=== PATIENT | female | born 2000 | race Caucasian/White ===

== ENCOUNTER 2023-02-23 19:02 | Inpatient (IN) | payer OTHER, SELFPAY ==
[2023-02-23] VITALS (13 sets, daily range): BP systolic 109–130; BP diastolic 58–81; PULSE 82–134; TEMP 36.4–36.9; O2SAT 97–98; BMI 34.2
[2023-02-23] MEDS: Lactated Ringers 1,000 ML 50 ML IV (19:40)
[2023-02-23 19:50] LABS: Absolute Lymphocyte Count 2.28 X10^3/uL (0.83-4.51); Absolute Neutrophil Count 7.5 X10^3/uL (2.0-7.7); Basophil# 0.02 X10^3/uL; Basophil% 0.2 % (0-1); Eosinophil# 0.15 X10^3/uL; Eosinophils% 1.4 % (0-5); Hematocrit 35.4 % (37-47); Hemoglobin 12.3 g/dL (12.0-15.0); Lymphocyte # 2.28 X10^3/ul (0.83-4.51); Lymphocyte % 20.7 % (19-41); Mean Corp Hgb Conc 34.7 g/dL (32-36); Mean Corpuscular Hgb 30.1 pg (27.0-32.0); Mean Corpuscular Volume 86.6 fL (81-99); Mean Platelet Vol. 10.3 fl (6.2-12.0); Monocyte# 1.01 X10^3/uL; Monocyte% 9.2 % (0-10); NRBC Flagged by Analyzer 0 % (0-5); Neutrophil % 68.1 % (47-70); Platelet Count 300 K/mm3 (150-450); RBC Distribution Width CV 13.3 % (11.6-14.6); RBC Distribution Width SD 41.1 fl (35.1-43.9); Red Blood Count 4.09 M/mm3 (4.2-5.4)
[2023-02-23 20:32] LABS: Syphilis Antibodies Non-reactive
[2023-02-23] MEDS: miSOPROStol 25 MCG TABLET PO (20:50)
[2023-02-24] VITALS (38 sets, daily range): BP systolic 113–136; BP diastolic 65–91; PULSE 73–125; TEMP 36.5–37.1; O2SAT 91–100
[2023-02-24] MEDS: LACTATED RINGERS 500 ML 999 ML IV ×2 (00:36→22:15)
[2023-02-24] MEDS: miSOPROStol 25 MCG TABLET PO ×4 (01:55→14:05)
[2023-02-24] MEDS: 0.9% Normal Saline Single 100 ML IV.SOLN. INTRA-UTER (09:50)
--- NOTE | 2023-02-24 12:15 | PCM.HP.OB ---
HPI - General General Date of Admission: 02/23/23 HPI Narrative RICKY SUMNER, is a 22 F at 41 weeks gestation who presents for scheduled induction of labor for postdates. Maternal Data Information LEWIS Calculator Estimated Delivery Date Method Current WG Current Estimate 02/17/23 Manual 41w 0d PFSH PFS Medical History (Updated 02/24/23 @ 12:20 by Ashley Ellis CNM) Anxiety of partner Depression Home Medications famotidine 20 mg tablet (Pepcid) 20 mg PO BID 02/23/23 [History Last Taken 02/23/23 06:00] mhuqtecq-vgr-Vj-FA 1 mg tablet 1 tab PO DAILY 02/23/23 [History Last Taken 02/22/23 10:00] Allergy/AdvReac Type Severity Reaction Status Date / Time No Known Allergies Allergy Verified 02/23/23 19:24 Social History Smoking Status: Never smoker History Elective abortions Hx Para 0 Spontaneous abortions Hx # Term Pregnancies Ectopic pregnancies Hx # Pregnancies Multiple births # of living children ROS Eyes Eyes: Denies blurry vision, change in vision or spots in vision ENT HEENT: Denies dizziness or headache(s) Cardiovascular Cardiovascular: Denies abdominal pain, chest pain or dyspnea Respiratory/Chest Respiratory/Chest: Denies cough, dyspnea, shortness of breath at rest or shortness of breath with exertion Gastrointestinal Gastrointestinal: Denies abdominal pain, diarrhea or vomiting Genitourinary Genitourinary: Denies change in urinary stream, difficulty urinating or dysuria Musculoskeletal Musculoskeletal: Reports none Integumentary Integumentary: Denies rash Neurologic Neurologic: Denies dizziness, headache(s), memory loss or weakness Psychiatric Psychiatric: Reports none Vital Signs Vital Signs Vital Signs: 02/23/23 19:20 02/23/23 19:20 02/23/23 19:21 Temperature Temperature Source Pulse Rate 127 H 134 H Blood Pressure 130/81 H BP Systolic 130 BP Diastolic 81 Pulse Ox 02/23/23 19:21 02/23/23 19:26 02/23/23 19:26 Temperature Temperature Source Pulse Rate 101 H Blood Pressure BP Systolic BP Diastolic Pulse Ox 98 97 02/23/23 19:31 02/23/23 19:31 02/23/23 19:36 Temperature Temperature Source Pulse Rate 115 H 109 H Blood Pressure BP Systolic BP Diastolic Pulse Ox 98 02/23/23 19:36 02/23/23 19:41 02/23/23 19:41 Temperature Temperature Source Pulse Rate 111 H Blood Pressure BP Systolic BP Diastolic Pulse Ox 97 98 02/23/23 19:46 02/23/23 19:46 02/23/23 19:51 Temperature Temperature Source Pulse Rate 121 H 108 H Blood Pressure BP Systolic BP Diastolic Pulse Ox 97 02/23/23 19:51 02/23/23 20:29 02/23/23 20:29 Temperature Temperature Source Pulse Rate 116 H Blood Pressure 122/78 H BP Systolic 122 BP Diastolic 78 Pulse Ox 97 02/23/23 20:29 02/23/23 20:29 02/23/23 21:48 Temperature 98.5 F Temperature Source Temporal Pulse Rate Blood Pressure 118/74 BP Systolic 118 BP Diastolic 74 Pulse Ox 02/23/23 21:48 02/23/23 21:48 02/23/23 21:48 Temperature 97.6 F L Temperature Source Temporal Pulse Rate 102 H Blood Pressure BP Systolic BP Diastolic Pulse Ox 02/23/23 22:44 02/23/23 22:44 02/23/23 23:33 Temperature Temperature Source Pulse Rate 82 Blood Pressure 121/59 H 109/58 L BP Systolic 121 109 BP Diastolic 59 58 Pulse Ox 02/23/23 23:33 02/23/23 23:32 02/23/23 23:32 Temperature 98.0 F Temperature Source Temporal Pulse Rate 83 Blood Pressure BP Systolic BP Diastolic Pulse Ox 02/24/23 00:38 02/24/23 00:38 02/24/23 03:30 Temperature Temperature Source Pulse Rate 73 Blood Pressure 118/65 BP Systolic 118 BP Diastolic 65 Pulse Ox 99 02/24/23 03:30 02/24/23 03:29 02/24/23 03:29 Temperature 97.8 F Temperature Source Pulse Rate 79 Blood Pressure BP Systolic BP Diastolic Pulse Ox 99 02/24/23 07:26 02/24/23 07:26 02/24/23 07:26 Temperature Temperature Source Pulse Rate 105 H Blood Pressure 123/76 H BP Systolic 123 BP Diastolic 76 Pulse Ox 99 02/24/23 07:26 02/24/23 07:26 02/24/23 07:44 Temperature 97.7 F L Temperature Source Temporal Pulse Rate Blood Pressure 131/73 H BP Systolic 131 BP Diastolic 73 Pulse Ox 02/24/23 07:44 02/24/23 07:44 02/24/23 07:44 Temperature Temperature Source Pulse Rate 87 113 H Blood Pressure BP Systolic BP Diastolic Pulse Ox 98 02/24/23 10:08 02/24/23 10:08 02/24/23 10:08 Temperature Temperature Source Temporal Pulse Rate 82 Blood Pressure 126/85 H BP Systolic 126 BP Diastolic 85 Pulse Ox 02/24/23 10:08 02/24/23 10:08 Temperature 97.7 F L Temperature Source Pulse Rate Blood Pressure BP Systolic BP Diastolic Pulse Ox 97 Weight Weight: 232 lb 4 oz Body Mass Index (BMI) 34.2 Physical Exam Const alert and no apparent distress General Appearance: cooperative Orientation / Consciousness: awake Exam Limitations: no limitations HEENT normocephalic Eyes General Eye: normal appearance of both eyes Neck full ROM Chest inspection of chest normal Resp normal respiratory effort and normal air movement Effort and Inspection: symmetric chest movement Auscultation: clear to auscultation bilaterally Cardio regular rate GI soft to palpation, non-tender and non-distended Inspection: and other Back/Spine normal ROM Extremity full ROM, normal capillary refill and no calf tenderness Skin no rashes or lesions noted Neuro oriented x3 and CN's II-XII intact bilaterally Psych mental status grossly normal Labs Labs Labs: Blood Type O POSITIVE Antibody Screen NEGATIVE Hct 35.4 % (37-47) L Hgb 12.3 g/dL (12.0-15.0) Syphilis Total Ab Non-reactive GBS negative Assessment & Plan (1) 41 weeks gestation of : (2) Nulliparity: (3) Depression: (4) Anxiety: (5) Encounter for induction of labor: (6) of partner: COMMENT: FOB unexpectedly during PLAN: Plan Admit to labor and delivery Routine labs GBS negative Start IV fluids and run per orders CE- FT/Thick/High Cytotec 25 mcg PO every 4 hours x 6 doses total Anticipate placement of wade bulb Dr. Macias notified of admission and is collaborating physicain
--- NOTE | 2023-02-24 12:30 | PCM.PN.BLA ---
Progress Note Patient seen at bedside. Denies any pain. Has been ambulating in hallways. Assessment & Plan Assessment/Plan (1) 41 weeks gestation of : (2) Nulliparity: (3) Encounter for induction of labor: PLAN: Plan CE- FT/Thick/High- no change Cytotec 25 mcg - vaginally x 2 doses then Cytotec 50 mcg Buccal x 1 for last dose Will attempt placement of wade bulb 4 hours after last dose Cat. 1 tracing Starting to feel mild contractions Dr. Macias updated and agrees with plan of care
[2023-02-24] MEDS: Lactated Ringers 1,000 ML 50 ML IV (15:04)
[2023-02-24] MEDS: miSOPROStol 50 MCG TABLET PO (18:00)
--- NOTE | 2023-02-24 19:17 | PCM.PN.BLA ---
Progress Note At bedside with pt and RN. Pt getting uncomfortable with ctx's q 1-2 min. Assessment & Plan Assessment/Plan (1) 41 weeks gestation of : PLAN: Pt getting uncomfortable with ctx's after 50 mcg of Cytotec. At bedside to check pt and attempt intracervical wade placement. Pt declines exam and attempt at wade placement at this time given pain. TAUS performed to confirm vtx presentation and FHT 145 bpm. FHT 145/mod hugo/no accels/no decels while in room. RN palpating strong ctx's. 4 hrs after Cytotec will start pitocin per protocol. (2) Nulliparity: (3) Encounter for induction of labor:
[2023-02-24] MEDS: fentaNYL 100 MCG/2 ML Ampul IV (20:22)
[2023-02-24] MEDS: fentaNYL-bupivacaine (epidural) 100 ML BAG EPIDURAL (23:06)
[2023-02-24] MEDS: Oxytocin 15 Units/NS 250ml 15 UNITS/250 ML IV.SOLN 2 UNITS IV (23:34)
[2023-02-25] VITALS (23 sets, daily range): BP systolic 105–129; BP diastolic 42–95; PULSE 70–109; RESP 16; TEMP 36.2–36.9; O2SAT 87–100
[2023-02-25] MEDS: LACTATED RINGERS 500 ML 999 ML IV (01:20)
[2023-02-25] MEDS: Acetaminophen 500 MG Tablet PO (02:52)
[2023-02-25] MEDS: Sodium Citrate/Citric Acid 30 ML UDC PO (02:52)
[2023-02-25] MEDS: Cefazolin 2 GM in 0.9% Normal Saline 100 ML IV (03:00)
--- NOTE | 2023-02-25 03:57 | PCM.OPRPT ---
Problems Associated Problem List Diagnoses (1) Delivery by section: (2) intolerance to labor, delivered, current hospitalization: Report of Operation Date of Procedure: 02/25/23 Pre-Operative Diagnosis: 41 week gestation, single IUP, obesity in , intolerance to labor Post-Operative Diagnosis: As above Surgery/Procedure Performed:: PLTCS via pfannenstiel incision Description of Surgical Findings:: VMI in cephalic presentation. Clear fluid. Normal appearing placenta and 3 VC. Normal appearing uterus and bilateral adnexa. Apgars 8, 9 Surgeon: Viv Macias agricultural sciences professor: Alyson ROBLES Type of Anesthesia: Epidural Special Medications: None Specimen's removed: Placenta Drains: Pedro Estimated Blood Loss (mL): 700 Fluids Replaced: 700 mL Description of Procedure: Indication: The patient is a 22-year-old who presented at 41 weeks gestation for an induction of labor. She was given 6 doses of Cytotec, and an intracervical Pedro was unable to be placed after multiple attempts given an unfavorable cervix after Cytotec. Pitocin per protocol was started. heart rate tracing then showed decelerations followed by minimal variability, and the patient was 1 cm dilated. Giving given intolerance to labor and remote from delivery, a section was recommended. Discussed risk, benefits, alternatives of section and consent obtained. The patient desired to proceed with a section. Procedure: Patient was taken to the operating room where epidural anesthesia was found to be adequate. She was prepped and draped in a dorsal position with a leftward tilt. A Pfannenstiel skin incision was made and this was carried down to the underlying layer of fascia. The fascia was incised in the midline. The fascia was extended laterally using Jaramillo scissors. Rectus muscles were in the midline. The peritoneum was entered bluntly with good visualization of the bladder. The peritoneal incision was extended bluntly. A bladder blade was inserted. A low transverse incision was made on the uterus with the scalpel. Membranes were ruptured for clear fluid. The 's head was flexed and delivered through the hysterotomy, followed by the shoulders and the body of the infant easily without any force or delay. A vigorous viable male infant was delivered in cephalic presentation. Cord was clamped and cut after a slight delay. The was handed off to the awaiting nursery staff. The placenta was removed with manual extraction. The uterus was exteriorized. The hysterotomy was closed with 1-0 Vicryl in a running locked fashion. Hemostasis was noted. Uterus was then placed back in the abdomen. Gutters were cleared. The hysterotomy was again noted to be hemostatic. The fascia was then closed with strata fix in a running fashion. The subcutaneous space was irrigated and noted to be hemostatic. The subcutaneous space was reapproximated using 3-0 Vicryl. The skin was closed with 4-0 Monocryl in a subcuticular fashion. A dressing was placed. Instrument, sponge, needle counts were correct. The patient was taken to the recovery room in stable condition. Grafts/Implants Used: None Complications None Admit VTE Documentation VTE Present on Admission: No VTE Mechan Device Prophylaxis: SCD's
[2023-02-25] MEDS: Oxytocin 15 Units/NS 250ml 15 UNITS/250 ML IV.SOLN 83 UNITS IV (04:32)
[2023-02-25] MEDS: Ketorolac 30 MG/ML Syringe IV ×3 (04:32→17:29)
--- NOTE | 2023-02-25 05:32 | CPS ---
CORNETIST left I.S. at bedside for RN to go over with patient
[2023-02-25] MEDS: Lactated Ringers 1,000 ML 100 ML IV (08:00)
[2023-02-25] MEDS: Ondansetron 4 MG/2 ML Vial IV (08:54)
[2023-02-25] MEDS: Acetaminophen 500 MG Tablet 1000 MG PO ×3 (09:05→20:18)
[2023-02-25] MEDS: Senna/Docusate Sodium 1 Tablet PO (10:54)
--- NOTE | 2023-02-25 11:28 | NURSING ---
wade catheter removed; pt zoe well
[2023-02-25] MEDS: Enoxaparin 40 MG/0.4 ML Syringe SC (16:30)
[2023-02-26 00:03] VITALS: BP 141/79; PULSE 101; RESP 15; TEMP 36.7; O2SAT 95
[2023-02-26] MEDS: 0.9% Saline Lock 10 ML Syringe IV (00:15)
[2023-02-26] MEDS: Ketorolac 30 MG/ML Syringe IV (00:15)
[2023-02-26] MEDS: Acetaminophen 500 MG Tablet 1000 MG PO ×4 (03:27→21:07)
[2023-02-26 03:46] VITALS: BP 131/90; PULSE 95; RESP 17; TEMP 36.8; O2SAT 97
[2023-02-26 05:21] LABS: Hematocrit 31.3 % (37-47); Hemoglobin 10.2 g/dL (12.0-15.0); Mean Corp Hgb Conc 32.6 g/dL (32-36); Mean Corpuscular Hgb 29.1 pg (27.0-32.0); Mean Corpuscular Volume 89.2 fL (81-99); Mean Platelet Vol. 10.2 fl (6.2-12.0); Platelet Count 235 K/mm3 (150-450); RBC Distribution Width CV 13.5 % (11.6-14.6); RBC Distribution Width SD 43.4 fl (35.1-43.9); Red Blood Count 3.51 M/mm3 (4.2-5.4); White Blood Count 11.8 K/mm3 (4.4-11.0)
[2023-02-26] MEDS: Ibuprofen 600 MG Tablet PO ×3 (05:46→21:07)
[2023-02-26 08:40] VITALS: BP 114/64; PULSE 86; RESP 16; TEMP 36.7; O2SAT 98
--- NOTE | 2023-02-26 08:52 | PCM.PN.OB ---
Subjective Subjective Pain well controlled. Average lochia. Ambulating and tolerating regular diet. Urinating without difficulty. Had a bowel movement this morning. No nausea or vomiting. Denies headache or visual changes. Objective Data Objective Data Vital Signs: Vital Signs Temp Pulse Resp BP Pulse Ox O2 Del Method 98.1 F 86 16 114/64 98 Room Air 02/26/23 08:40 02/26/23 08:40 02/26/23 08:40 02/26/23 08:40 02/26/23 08:40 02/26/23 08:40 Oxygen Delivery Method Room Air Weight: 105.347 kg Body Mass Index (BMI) 34.2 Intake & Output: Intake and Output for Last 24 Hours 02/24/23 02/25/23 02/26/23 23:59 23:59 23:59 Intake Total 2445.84 / 2445.84 1679.53 / 1679.53 Output Total 3200 / 3200 Balance 2445.84 / 2445.84 -1520.47 / -1520.47 Lab / Micro Data Result Diagrams: 02/26/23 05:13 Labs: Laboratory Results - last 24 hr 02/26/23 05:13: WBC 11.8 H, RBC 3.51 L, Hgb 10.2 L, Hct 31.3 L, MCV 89.2, MCH 29.1, MCHC 32.6 D, RDW Std Deviation 43.4, RDW Coeff of Vee 13.5, Plt Count 235, MPV 10.2 Physical Exam Const alert Constitutional Narrative: Bandage with moderate sanguinous drainage. General Appearance: cooperative GI GI Narrative: soft, moderate distention, fundus firm, appropriately tender. Abdominal bandage clean dry and intact Assessment & Plan (1) Delivery by section: PLAN: Postoperative day #1 status post primary section. and patient are doing well. Working on breast-feeding. Mild acute blood loss anemia appropriate for blood loss during surgery. Restart vitamins and iron supplementation.
[2023-02-26] MEDS: Enoxaparin 40 MG/0.4 ML Syringe SC (10:52)
[2023-02-26 13:50] VITALS: BP 129/80; PULSE 95; RESP 16; TEMP 36.4; O2SAT 100
[2023-02-26] MEDS: Ferrous Gluconate 324 MG Tablet PO (14:08)
[2023-02-26] MEDS: Prenatal Vits Tablet 1 TABLET PO (14:09)
[2023-02-26 19:43] VITALS: BP 121/85; PULSE 99; RESP 15; TEMP 37.1; O2SAT 96
[2023-02-27 01:00] VITALS: BP 125/74; PULSE 99; RESP 15; TEMP 36.6; O2SAT 96
[2023-02-27] MEDS: Acetaminophen 500 MG Tablet 1000 MG PO ×2 (02:39→10:58)
[2023-02-27] MEDS: Ibuprofen 600 MG Tablet PO ×2 (02:39→10:57)
--- NOTE | 2023-02-27 08:24 | PCM.PN.OB ---
Subjective Subjective Patient is doing well. Pain is well controlled. She is ambulating and voiding without difficulty. She is tolerating a regular diet without nausea or vomiting. Lochia is normal. She denies any lightheadedness or dizziness. Denies leg pain. She desires to go home today. Objective Data Objective Data Vital Signs: Vital Signs Temp Pulse Resp BP Pulse Ox O2 Del Method 97.8 F 99 15 125/74 H 96 Room Air 02/27/23 01:00 02/27/23 01:00 02/27/23 01:00 02/27/23 01:00 02/27/23 01:00 02/27/23 01:00 Oxygen Delivery Method Room Air Weight: 232 lb 4 oz Body Mass Index (BMI) 34.2 Intake & Output: Intake and Output for Last 24 Hours 02/25/23 02/26/23 02/27/23 23:59 23:59 23:59 Intake Total 1679.53 / 1679.53 Output Total 3200 / 3200 Balance -1520.47 / -1520.47 Lab / Micro Data Result Diagrams: 02/26/23 05:13 Physical Exam Const alert and no apparent distress General Appearance: comfortable HEENT normocephalic Resp normal respiratory effort GI soft to palpation and non-distended GI Narrative: ATTP, dressing intact Extremity Extremity Narrative: Trace LE edema bilaterally Assessment & Plan (1) Delivery by section: PLAN: Patient is status post section. She desires discharge today and is meeting milestones for discharge. Instructions reviewed and follow-up in 1 to 2 weeks for incision check.
--- NOTE | 2023-02-27 08:31 | DCINST_ITS ---
Discharge Instructions Diet Discharge Diet: No restrictions Activity Discharge Activity: May Not Drive and May Shower May resume sexual activity in: 6 weeks Weight Bearing Status: Weight bearing as tolerated Lifting Restrictions: Nothing heavier than baby Dressing / Incision Call your doctor if your incision/area has: Continuous Slow Oozing, Sudden Incre ased Bleeding, Increased Pain/ Swelling, Increased Redness, Foul Smelling Discharge and Swelling at the incision site Call your doctor if you observe: Fever of 101 or Higher, Coldness, Increased Pain, Numbness or Tingling, Change in Color, Inability to urinate, Inability to have a bowel movement, Using more than 1 pad per hour, Shortness of breath, Dizziness, Fainting spells, Swelling in the ankles, Chest pain, Increased palpitations (irregular heartbeat), Calf discomfort and Uncontrolled pain Suture Line Care: Avoid Pulling/Pushing and Avoid Pinching/Bending Remove Dressing in: 3 days Cleanse incision/area with: Soap & Water Follow Up Care Please Follow Up With: Viv Macias DO When: 1-2 weeks incision check Test Results: Test results from this visit will be discussed in further detail at your follow- up appointment, if applicable. Discharge Plan Admission Admit Date/Time: 02/23/23 19:02 Primary Reason for Your Visit: delivery Attending Provider: Viv Macias Primary Care Provider: Kimmie Rees Primary Instructions Patient Instructions: Section Dc Discharge Orders/Prescriptions Prescriptions: New oxycodone-acetaminophen [Percocet] 5-325 mg tablet 1 tab PO Q6H PRN (Reason: pain) 7 Days Qty: 10 0RF ibuprofen 600 mg tablet 600 mg PO Q6H PRN (Reason: pain) Qty: 30 0RF docusate sodium [Colace] 100 mg capsule 100 mg PO BID Qty: 30 0RF Continued [id number]-dem-[id number] 1 mg Tablet 1 tab PO DAILY Discontinued famotidine [Pepcid] 20 mg Tablet 20 mg PO BID Referrals / Follow Up: Care PhysicianKimmie Primary [Primary Care Provider] - Disposition Disposition (needs filled in before D/C Order can be placed): Home, Self Care
--- NOTE | 2023-02-27 08:32 | PCM.DC.SUM ---
Providers Date of Admission: 02/23/23 Date of Discharge: 02/27/23 Primary Care Physician: No Primary Care Phys Reason For Visit: Diagnosis Discharge Diagnosis (1) Delivery by section: Status: Acute Plan: Patient is status post section. She desires discharge today and is meeting milestones for discharge. Instructions reviewed and follow-up in 1 to 2 weeks for incision check. Medications at Discharge Home Medications [id number]-lct-[id number]-[id number] 1 mg tablet 1 tab PO DAILY 02/23/23 docusate sodium 100 mg capsule (Colace) 100 mg PO BID constipation #30 caps 02/27/23 ibuprofen 600 mg tablet 600 mg PO Q6H PRN pain #30 tabs 02/27/23 oxycodone-acetaminophen 5 mg-325 mg tablet (Percocet) 1 tab PO Q6H PRN pain 7 days #10 tabs 02/27/23 Hospital Course Operations section Summary of Care Provided Hospital Course: 22-year-old G1 who presented at 40 weeks and 6-day gestation for a planned induction of labor. She was given 6 doses of Cytotec, and Pitocin was started for her induction. Her cervix remained unfavorable after over 24 hours of induction, and an intracervical wade was unable to be placed. She then underwent a section for intolerance to labor. See operative report for details. Weight / BMI Weight Weight: 232 lb 4 oz Body Mass Index (BMI) 34.2 ABG / Lab / Microbiology Data Result Diagrams: 02/26/23 05:13 D/C Instructions Discharge Diet: No restrictions May resume sexual activity in: 6 weeks Weight Bearing Status: Weight bearing as tolerated Call your doctor if your incision/area has: Continuous Slow Oozing, Sudden Increased Bleeding, Increased Pain/ Swelling, Increased Redness, Foul Smelling Discharge and Swelling at the incision site Call your doctor if you observe: Fever of 101 or Higher, Coldness, Increased Pain, Numbness or Tingling, Change in Color, Inability to urinate, Inability to have a bowel movement, Using more than 1 pad per hour, Shortness of breath, Dizziness, Fainting spells, Swelling in the ankles, Chest pain, Increased palpitations (irregular heartbeat), Calf discomfort and Uncontrolled pain Suture Line Care: Avoid Pulling/Pushing and Avoid Pinching/Bending Cleanse incision/area with: Soap & Water Please Follow Up With: Viv Macias DO When: 1-2 weeks incision check Meaningful Use Info Meaningful Use Diagnoses (Choose all that apply): None applicable Discharge Plan Admission Admit Date/Time: 02/23/23 19:02 Primary Reason for Your Visit: delivery Attending Provider: Viv Macias Primary Care Provider: Ivonne Physician,No Primary Instructions Patient Instructions: Section Dc Discharge Orders/Prescriptions Prescriptions: New oxycodone-acetaminophen [Percocet] 5-325 mg tablet 1 tab PO Q6H PRN (Reason: pain) 7 Days Qty: 10 0RF ibuprofen 600 mg tablet 600 mg PO Q6H PRN (Reason: pain) Qty: 30 0RF docusate sodium [Colace] 100 mg capsule 100 mg PO BID Qty: 30 0RF Continued onzktuao-pyt-Pj-FA 1 mg Tablet 1 tab PO DAILY Discontinued famotidine [Pepcid] 20 mg Tablet 20 mg PO BID Referrals / Follow Up: Care Physician,No Primary [Primary Care Provider] - Disposition Disposition (needs filled in before D/C Order can be placed): Home, Self Care
[2023-02-27 08:33] VITALS: BP 117/77; PULSE 91; RESP 19; TEMP 36.3; O2SAT 98
[2023-02-27] MEDS: Enoxaparin 40 MG/0.4 ML Syringe SC (10:58)
[2023-02-27] MEDS: Senna/Docusate Sodium 1 Tablet PO (10:59)
[2023-02-27 14:00] VITALS: BP 133/86; PULSE 93; RESP 18; TEMP 36.8; O2SAT 96
[2023-02-27] MEDS: Ferrous Gluconate 324 MG Tablet PO (14:02)
[2023-02-27] MEDS: Prenatal Vits Tablet 1 TABLET PO (14:02)
== END 2023-02-27 15:55 | disposition home or self-care (01) | DRG 787 ==
PROVIDERS: Advanced Practice Midwife; Admitting Provider Obstetrics & Gynecology; Referring Provider Obstetrics & Gynecology; Visit Provider Obstetrics & Gynecology
DX: O77.9 Labor and delivery complicated by fetal stress, unspecified (principal); D62 Acute posthemorrhagic anemia; O48.0 Post-term pregnancy; Z37.0 Single live birth; Z3A.41 41 weeks gestation of pregnancy; O99.214 Obesity complicating childbirth; E66.8 Other obesity; Z63.4 Disappearance and death of family member
CPT/HCPCS: 59025; 59050; 85025; 85027; 86780; 86850; 86900; 86901; 99221; J7120; A4216; G0378; J2405

== ENCOUNTER 2024-09-18 16:48 | Emergency (ER) | payer OTHER, SELFPAY ==
[2024-09-18 16:49] VITALS: BP 149/100; PULSE 111; RESP 17; TEMP 36.2; O2SAT 100; BMI 33.5
--- NOTE | 2024-09-18 16:55 | RAD_ITS ---
EXAM: XR RIGHT ANKLE COMPLETE, 3 OR MORE VIEWS CLINICAL INDICATION: fall pain. TECHNIQUE: Frontal, lateral and oblique views of the right ankle. COMPARISON: Right foot on the same date. FINDINGS: BONES/JOINTS: No significant abnormality. No acute fracture. No subluxation. Normal alignment. Preservation of the joint space. No sclerotic or destructive changes observed. SOFT TISSUES: Mild soft tissue swelling about the ankle. No radiopaque foreign body. RAD/Ankle min 3 Views IMPRESSION: Mild soft tissue swelling about the ankle. No acute fracture or dislocation is evident. Electronically Signed: Ramón Stout DO at 17:58 EST ,
--- NOTE | 2024-09-18 16:55 | EDS_ITS ---
HPI <ANAMIKA Narayan - Last Filed: 09/18/24 18:04> History of Present Illness Chief Complaint: Lower Extremity Injury Narrative Narrative: Patient is a 24-year-old female with no significant medical history who presents to the emergency department with complaints of right foot, right ankle pain after slipping around 1:15 PM on the ice. Patient [place] any other injury. Patient that she is having difficulty walking on it. She no some swelling to the right lateral foot. Patient also has pain to the lateral ankle. PFSH <ANAMIKA Narayan - Last Filed: 09/18/24 18:04> [facility] Medical History (Updated 09/18/24 @ 18:00 by ANAMIKA Narayan) intolerance to labor, delivered, current hospitalization of partner Depression Anxiety Home Medications ?Medication ?Instructions ?Recorded ?Last Taken ?Type ergocalciferol (vitamin D2) 1,250 1,250 mcg PO QWEEK 09/18/24 Unknown History mcg (50,000 unit) capsule Allergy/AdvReac Type Severity Reaction Status Date / Time No Known Allergies Allergy Verified 09/18/24 16:49 Surgical History Delivery by section Social History (Updated 09/18/24 @ 16:55 by Ingrid Hutchinson) household members: children Smoking Status: Never smoker ROS <ANAMIKA Narayan - Last Filed: 09/18/24 18:04> ROS ED ROS Narrative Constitutional: Negative for fever, chills, weight loss, weakness Eyes: Negative for vision loss, vision change, double vision ENT: Negative for any sore throat, ear pain, congestion Cardiovascular: Negative for any chest pain, tightness, palpitations Respiratory: Negative for any cough, sputum production, hemoptysis, dyspnea, dyspnea on exertion, orthopnea Gastrointestinal: Negative for any abdominal pain, nausea, vomiting, diarrhea, constipation, blood in stool, blood in vomit : Negative for any urinary frequency, dysuria, retention, blood in urine Muscle skeletal: Negative for any neck pain, back pain. Positive pain to the right foot and ankle Neurological: Negative for any headache, syncope, dizziness Skin: Negative for any rashes, itching, abrasions, lacerations Psychiatric: Negative for any depression, anxiety, stress, suicidal ideation, homicidal ideation Hematologic: Negative for any excessive bruising, easy bleeding EXAM <ANAMIKA Narayan - Last Filed: 09/18/24 18:04> Physical Exam Narrative Exam Narrative: Vital signs reviewed. Extremities: Patient does have some lateral swelling to the fifth metatarsal. Pain along the fifth metatarsal as well as the lateral malleolus. +2 radial pulse. Only significant edema, no significant ecchymosis. Neuro: Cranial nerves II through XII intact, no focal neurological deficits. Skin: Clean dry and intact with no rash, purpura, petechiae, vesicles or pustules. Backs/flank: No CVA tenderness, no midline spinal tenderness, no deformity. Psych: Normal mood and affect. No SI, HI or acute psychosis. Const Vital Signs: 09/18/24 16:49 Temperature 97.2 F L Temperature Source Temporal Pulse Rate 111 H Respiratory Rate 17 Blood Pressure 149/100 H Blood Pressure Mean 116 Pulse Ox 100 Oxygen Delivery Method Room Air <Dr. Robert Pepe MD - Last Filed: 09/18/24 18:04> Physical Exam Const Vital Signs: 09/18/24 16:49 Temperature 97.2 F L Temperature Source Temporal Pulse Rate 111 H Respiratory Rate 17 Blood Pressure 149/100 H Blood Pressure Mean 116 Pulse Ox 100 Oxygen Delivery Method Room Air MDM <ANAMIKA Narayan - Last Filed: 09/18/24 18:04> MDM Radiography Diagnostic Testing: Clinical Impression(s) from Imaging Studies Ankle X-Ray 09/18/24 16:55 IMPRESSION: Mild soft tissue swelling about the ankle. No acute fracture or dislocation is evident. Electronically Signed: Ramón Stout DO at 17:58 EST , Foot X-Ray 09/18/24 16:55 IMPRESSION: Soft tissue swelling throughout the foot. No discrete evidence of acute osseous abnormality. Electronically Signed: Ramón Stout DO at 17:56 EST , Treatment and Re-Evaluation :: Differential diagnosis includes however is not limited to: Ankle sprain, lateral malleoli are fracture, fifth metatarsal fracture, foot sprain foot contusion Patient appears generally well, vital signs are stable, patient is nontoxic- appearing. Presenting to the emergency department after falling, inverting the right foot and ankle. Patient will receive x-rays of the right foot, right ankle. Tylenol will be given. All radiologic examinations were read, reviewed by the emergency department attending. From these reads, a plan of care will be put in place. Soft tissue swelling throughout the foot, no discrete evidence of acute fracture. Patient's ankle x-ray was negative for any acute fracture. At this time, patient be discharged home. Patient will continue to ice elevate and use ibuprofen and Tylenol. Patient does have crutches and will follow-up if not improved. All questions answered, stable for discharge. <Dr. Robert Pepe MD - Last Filed: 09/18/24 18:04> [facility] Narrative Medical decision making narrative: I have personally performed a face to face assessment of the patient and have reviewed the RADHA Note. I performed a substantive portion of the visit including all aspects of the following. My yen findings include: History is [24-year-old female was walking slipped on the ice fell injuring her right ankle complaining of pain distal to the ankle on the right lateral proximal foot. No other complaints. No other injuries. No head injury. No LOC.] Exam is [well-appearing 24-year-old female. Vital signs stable afebrile. H EENT exam unremarkable atraumatic. Pupils round reactive light. Nontender scalp. Neck nontender. Back and spine nontender. Lungs clear. Heart regular rhythm Ribo-100 no murmur. Chest wall ribs nontender. Abdomen soft nontender. Pelvic girdle intact. Moving all 4 extremities. Neurovascularly intact. Normal range of motion. No gross bony deformity. Normal admitting officer strength. Normal dorsi plantarflexion. Normal DP pulse. Right knee and calf nontender. Right ankle no specific tenderness medial or lateral malleolus. No swelling. Proximal anterior lateral foot there is tenderness. No deformity. Normal DP pulse. Able to wiggle her toes. Normal touch sensation. No deformity. Skin intact.] Medical Decision Making [right foot x-ray and ankle x-ray were unremarkable. Treated as a sprain.] Other additions or changes: [None] Radiography Diagnostic Testing: Clinical Impression(s) from Imaging Studies Ankle X-Ray 09/18/24 16:55 IMPRESSION: Mild soft tissue swelling about the ankle. No acute fracture or dislocation is evident. Electronically Signed: Ramón Stout DO at 17:58 EST , Foot X-Ray 09/18/24 16:55 IMPRESSION: Soft tissue swelling throughout the foot. No discrete evidence of acute osseous abnormality. Electronically Signed: Ramón Stout DO at 17:56 EST , right ankle x-ray, 3 views, entered by myself and the radiologist shows no acute abnormality. No fracture or dislocation. Mild soft tissue swelling. Right foot x-ray, 3 views, interpreted both by myself and radiologist shows no acute abnormality. No fracture dislocations. Soft tissue swelling. Discharge Plan Triage Chief Complaint: Lower Extremity Injury ED Midlevel Provider: Doron Estrella ED Provider: Robert Pepe Dx/Rx/DC Orders Clinical Impression: Fall, Foot sprain Instructions: ED Foot Sprain Prescriptions: No Action ergocalciferol (vitamin D2) 1,250 mcg (50,000 unit) capsule 1,250 mcg PO QWEEK Primary Care Provider: Care Physician,No Primary Referrals: Care Physician,No Primary [Primary Care Provider] - Activity Restrictions/Additional Instructions: Please follow-up outpatient. Print Language: Hebrew Disposition Disposition: Home, Self Care
--- NOTE | 2024-09-18 16:55 | RAD_ITS ---
EXAM: XR RIGHT FOOT COMPLETE, 3 OR MORE VIEWS CLINICAL INDICATION: fall pain. TECHNIQUE: Frontal, lateral and oblique views of the right foot. COMPARISON: No relevant prior studies available. FINDINGS: BONES/JOINTS: No significant abnormality. No acute fracture. No subluxation. Normal alignment. Preservation of the joint space. No sclerotic or destructive changes observed. SOFT TISSUES: Soft tissue swelling throughout the foot. No radiopaque foreign body. RAD/Foot min 3 Views IMPRESSION: Soft tissue swelling throughout the foot. No discrete evidence of acute osseous abnormality. Electronically Signed: Ramón Stout DO at 17:56 EST ,
[2024-09-18] MEDS: Acetaminophen 500 MG Tablet 1000 MG PO (16:58)
[2024-09-18 18:05] VITALS: BP 138/78; PULSE 98; RESP 16; TEMP 36.2; O2SAT 100
== END 2024-09-18 18:06 | disposition home or self-care (01) ==
PROVIDERS: Emergency Provider Emergency Medicine; Visit Provider Emergency Medicine
DX: S93.401A Sprain of unspecified ligament of right ankle, initial encounter (principal); W00.0XXA Fall on same level due to ice and snow, initial encounter
CPT/HCPCS: 73610; 73630; 99282